=== PATIENT | female | born 1970 ===

== ENCOUNTER → 2018-04-17 | Emergency (ER) | payer OTHER ==
[~2018-04-17] VITALS: Ht 157.5 cm; Wt 72.6 kg
[~2018-04-17] MED LIST: KETO10TA2 PO
== END | disposition left against medical advice (07) ==
LOC: ER 10:57
DX: Z53.20 Procedure and treatment not carried out because of patient's decision for unspecified reasons (principal)

== ENCOUNTER 2018-08-10 10:14 | Emergency (ER) | payer OTHER ==
[~2018-08-10] VITALS: Ht 157.5 cm; Wt 68.0 kg
== END 2018-08-10 13:48 | disposition home or self-care (01) ==
LOC: ER 10:14
DX: K58.9 Irritable bowel syndrome, unspecified (principal)